=== PATIENT | female | born 1985 | race Caucasian/White ===

== ENCOUNTER 2017-09-26 23:57 | Emergency (ER) | payer OTHER, MEDICAID ==
[~2017-09-26] VITALS: Ht 152.4 cm; Wt 90.7 kg
[~2017-09-26 23:57] MED LIST: ACYCLOVIR 400400 MG PO; HYDROCODONE-APA1 TA1 PO; IBUPROFEN 800800 M1 PO; KEFLEX500 MG PO; MEDROLDOSEPACK PO; NOHOMEMEDICATIONS; NORCO 5-325 TA1 EAC1 PO; NORCO 5-325 TA1 EACH PO; PHENERGAN 25 MG25 M1 PO; PREDNISONE 10 M10 MG PO; ROBAXIN 750 MG750 M1 PO; TRIAMCINOLONE 080 G3 TOP; TRINATE TABLET1 TAB; TYLENOL325 MG PO; VENTOLIN HFA 1818 GM INH; XANAX 0.5 MG0.5 M1 PO; ZPAK PO
[2017-09-27] MEDS ORDERED: NEURONTIN 300300 M1 (00:12)
[2017-09-27 00:55] LABS: HEMATOCRIT 43.2 % (37.0-47.0); HEMOGLOBIN 14.8 gm/dL (12.0-15.0); MCH 31.5 pg (26.0-34.0); MCHC 34.2 g/dL (28.0-37.0); MCV 91.9 fL (80.0-100.0); MPV 9.2 fl. (7.2-11.1); RBC 4.7 mil/uL (4.20-5.00); RDW-CV 13.1 % (10.5-14.5); WBC 9.5 thou/uL (4.0-11.0)
[2017-09-27 00:58] LABS: CALCIUM 8.7 mg/dL (8.5-10.1); CREATININE 0.9 mg/dL (0.6-1.3); POTASSIUM 3.3 mmol/L (3.5-5.1)
[2017-09-27 01:02] LABS: ALBUMIN 3.9 g/dL (3.4-5.0); TOTAL BILIRUBIN 0.6 mg/dL (<0.1-1.0); TOTAL PROTEIN 7.3 g/dL (6.4-8.2)
[2017-09-27] MEDS ORDERED: NORCO 5-325 TA1 EACH PO (02:33)
[2017-09-27 03:02] VITALS: BP 116/75
== END 2017-09-27 02:45 | disposition home or self-care (01) ==
LOC: M.ERS 23:57
PROVIDERS: Emergency Medicine Emergency Medical Services
DX: M54.9 Dorsalgia, unspecified (principal); F41.9 Anxiety disorder, unspecified; F32.9 Major depressive disorder, single episode, unspecified; G89.29 Other chronic pain; M79.7 Fibromyalgia; F17.210 Nicotine dependence, cigarettes, uncomplicated; Z98.890 Other specified postprocedural states

== ENCOUNTER 2017-11-15 21:58 | Emergency (ER) | payer OTHER ==
[~2017-11-15] VITALS: Ht 152.4 cm; Wt 90.7 kg
[~2017-11-15 21:58] MED LIST changes: +NEURONTIN 300300 M1
[2017-11-15 22:27] LABS: ABSOLUTE BASOPHILS 0.1 thou/uL (0.0-0.2); ABSOLUTE EOSINOPHILS 0.2 thou/uL (0.0-0.7); ABSOLUTE LYMPHOCYTES 2.2 thou/uL (0.8-5.3); ABSOLUTE MONOCYTES 0.5 thou/uL (0.0-1.2); ABSOLUTE NEUTROPHILS 6.3 thou/uL (1.6-8.1); BASOPHILS 0.6 %; EOSINOPHILS 2.5 %; HEMATOCRIT 46.4 % (37.0-47.0); HEMOGLOBIN 15.8 gm/dL (12.0-15.0); LYMPHOCYTES 23.5 %; MCH 31.4 pg (26.0-34.0); MCV 92.4 fL (80.0-100.0); MONOCYTES 5.3 %; MPV 9.2 fl. (7.2-11.1); NUCLEATED RBCS 0 /100WBC; PLATELET COUNT* 220 thou/uL (150-400); POLYS 68.1 %; RBC 5.02 mil/uL (4.20-5.00); RDW-CV 13.3 % (10.5-14.5); WBC 9.3 thou/uL (4.0-11.0)
[2017-11-15 22:28] LABS: URINE BLOOD NEGATIVE (Negative); URINE CLARITY CLEAR; URINE COLOR YELLOW; URINE GLUCOSE-RANDOM NEGATIVE (Negative); URINE KETONES NEGATIVE (Negative); URINE LEUKOCYTES-REFLEX NEGATIVE (Negative); URINE NITRITE-REFLEX NEGATIVE (Negative); URINE PROTEIN TRACE (Negative); URINE SPECIFIC GRAVITY 1.025 (1.005-1.030)
[2017-11-15 22:30] LABS: ICTOTEST (BILI CONFIRMATORY) Negative (Negative); URINE BILIRUBIN 1+ (Negative)
[2017-11-15 22:37] LABS: AMP/METHAMP Negative (Negative); BARBITURATES Negative (Negative); BENZODIAZEPINES Negative (Negative); COCAINE POSITIVE (Negative); METHADONE Negative (Negative); OPIATES Negative (Negative); PCP Negative (Negative); THC POSITIVE (Negative)
[2017-11-15 22:40] LABS: CALCIUM 9.2 mg/dL (8.5-10.1); CREATININE 0.8 mg/dL (0.6-1.3); POTASSIUM 3.7 mmol/L (3.5-5.1)
[2017-11-15 22:44] LABS: ALBUMIN 3.7 g/dL (3.4-5.0); TOTAL BILIRUBIN 0.5 mg/dL (<0.1-1.0); TOTAL PROTEIN 7.3 g/dL (6.4-8.2)
[2017-11-15] MEDS ORDERED: ZOFRAN ODT4 MG PO (23:01)
[2017-11-15] MEDS ORDERED: ANTIVERT25 MG PO (23:01)
[2017-11-15 23:24] VITALS: BP 132/78
--- NOTE | 2017-11-16 10:40 | EKG ---
[place] [address] ELECTROCARDIOGRAM REPORT Name: GARCIA LANIER Room: [facility]#: [id number] Admission: 11/15/17 Attend Phys: Discharge: 11/15/17 Date of : 81 Report #: [id number] THIS REPORT FOR: //name// [facility] ED Test Date: 2017-11-15 Test Time: 22:30:04 Pat Name: GARCIA LANIER Department: Room: Gender: F Cotton Chopper: SHANICE : 1985 Requested By: Rubina Kilgore Order Number: [id number] MD: Julián Byrd Measurements Intervals [place] Rate: 74 P: 48 HI: 161 QRS: 28 QRSD: 100 T: 36 QT: 393 QTc: 436 Interpretive Statements Sinus rhythm Compared to ECG 02/24/2014 14:04:18 Sinus bradycardia no longer present Electronically Signed On 11-16-2017 10:39:57 CDT by Julián Byrd [email or web address] <ELECTRONICALLY SIGNED> By: Julián Byrd MD, [facility] 11/16/17 1039 [id number] 29 Julián Byrd MD, FACC /EPI
== END 2017-11-15 23:25 | disposition home or self-care (01) ==
LOC: M.ERS 21:58
PROVIDERS: Nurse Practitioner Family
DX: R11.2 Nausea with vomiting, unspecified (principal); R42 Dizziness and giddiness; F41.9 Anxiety disorder, unspecified; F32.9 Major depressive disorder, single episode, unspecified; M79.7 Fibromyalgia; G89.29 Other chronic pain; M54.9 Dorsalgia, unspecified; F17.210 Nicotine dependence, cigarettes, uncomplicated

== ENCOUNTER 2018-01-25 23:02 | Emergency (ER) | payer BC ==
[~2018-01-25] VITALS: Ht 152.4 cm; Wt 99.8 kg
[~2018-01-25 23:02] MED LIST changes: +ANTIVERT25 MG PO; +ZOFRAN ODT4 MG PO
[2018-01-25] MEDS ORDERED: PREDNISONE 20 M20 M1 PO (23:18)
[2018-01-25] MEDS ORDERED: VENTOLIN HFA 1818 GM INH (23:18)
[2018-01-25] MEDS ORDERED: ZPAK PO (23:18)
[2018-01-26] VITALS: BP 135/90
== END 2018-01-26 | disposition home or self-care (01) ==
LOC: M.ERS 23:02
DX: J40 Bronchitis, not specified as acute or chronic (principal); F17.210 Nicotine dependence, cigarettes, uncomplicated; F41.1 Generalized anxiety disorder; F32.9 Major depressive disorder, single episode, unspecified; G89.29 Other chronic pain; M54.9 Dorsalgia, unspecified; M79.7 Fibromyalgia; F40.00 Agoraphobia, unspecified; Z98.890 Other specified postprocedural states

== ENCOUNTER 2018-10-01 14:44 | Emergency (ER) | payer BC ==
[~2018-10-01] VITALS: Ht 154.9 cm; Wt 85.3 kg
[~2018-10-01 14:44] MED LIST changes: +PREDNISONE 20 M20 M1 PO
[2018-10-01 15:27] LABS: ABSOLUTE EOSINOPHILS 0.5 thou/uL (0.0-0.7); ABSOLUTE LYMPHOCYTES 1.3 thou/uL (0.8-5.3); ABSOLUTE MONOCYTES 0.4 thou/uL (0.0-1.2); ABSOLUTE NEUTROPHILS 2.5 thou/uL (1.6-8.1); BASOPHILS 0.8 %; EOSINOPHILS 9.9 %; HEMATOCRIT 40.8 % (37.0-47.0); HEMOGLOBIN 13.8 gm/dL (12.0-15.0); LYMPHOCYTES 27.3 %; MCH 30.7 pg (26.0-34.0); MCHC 33.8 g/dL (28.0-37.0); MCV 90.7 fL (80.0-100.0); MONOCYTES 8.3 %; MPV 9.3 fl. (7.2-11.1); NUCLEATED RBCS 0 /100WBC; PLATELET COUNT* 134 thou/uL (150-400); POLYS 53.7 %; RDW-CV 14.3 % (10.5-14.5); WBC 4.7 thou/uL (4.0-11.0)
[2018-10-01 15:34] LABS: CALCIUM 8.1 mg/dL (8.5-10.1); CREATININE 0.7 mg/dL (0.6-1.3); POTASSIUM 3.8 mmol/L (3.5-5.1)
[2018-10-01 15:39] LABS: ALBUMIN 3.3 g/dL (3.4-5.0); TOTAL BILIRUBIN 0.2 mg/dL (<0.1-1.0); TOTAL PROTEIN 6.5 g/dL (6.4-8.2)
[2018-10-01] MEDS ORDERED: PREDNISONE 10 M10 MG PO (16:46)
[2018-10-01] MEDS ORDERED: TRIAMCINOLONE A80 G2 TOP (16:55)
[2018-10-01] MEDS ORDERED: HYDROXYZINE HCL25 M1 PO (16:55)
[2018-10-01 17:17] VITALS: BP 120/78
== END 2018-10-01 17:18 | disposition home or self-care (01) ==
LOC: M.ERS 14:44
PROVIDERS: Physician Assistant
DX: L25.9 Unspecified contact dermatitis, unspecified cause (principal); F17.210 Nicotine dependence, cigarettes, uncomplicated; F41.9 Anxiety disorder, unspecified; F32.9 Major depressive disorder, single episode, unspecified; M54.9 Dorsalgia, unspecified; G89.29 Other chronic pain; M79.7 Fibromyalgia; Z98.890 Other specified postprocedural states

== ENCOUNTER 2018-11-19 17:44 | Emergency (ER) | payer BC ==
[~2018-11-19] VITALS: Ht 154.9 cm; Wt 73.0 kg
[~2018-11-19 17:44] MED LIST changes: +HYDROXYZINE HCL25 M1 PO; +TRIAMCINOLONE A80 G2 TOP
[2018-11-19 18:14] LABS: ABSOLUTE BASOPHILS 0.1 thou/uL (0.0-0.2); ABSOLUTE EOSINOPHILS 0.3 thou/uL (0.0-0.7); ABSOLUTE LYMPHOCYTES 2.3 thou/uL (0.8-5.3); ABSOLUTE MONOCYTES 0.4 thou/uL (0.0-1.2); ABSOLUTE NEUTROPHILS 3.5 thou/uL (1.6-8.1); BASOPHILS 1.3 %; EOSINOPHILS 4.5 %; HEMATOCRIT 41.5 % (37.0-47.0); HEMOGLOBIN 14.2 gm/dL (12.0-15.0); LYMPHOCYTES 35.1 %; MCH 30.9 pg (26.0-34.0); MCHC 34.2 g/dL (28.0-37.0); MCV 90.4 fL (80.0-100.0); MONOCYTES 5.6 %; MPV 9.7 fl. (7.2-11.1); NUCLEATED RBCS 0 /100WBC; PLATELET COUNT* 135 thou/uL (150-400); POLYS 53.5 %; RBC 4.59 mil/uL (4.20-5.00); RDW-CV 13.2 % (10.5-14.5); WBC 6.5 thou/uL (4.0-11.0)
[2018-11-19 18:19] LABS: URINE BILIRUBIN NEGATIVE (Negative); URINE BLOOD NEGATIVE (Negative); URINE CLARITY CLEAR; URINE COLOR YELLOW; URINE GLUCOSE-RANDOM NEGATIVE (Negative); URINE KETONES NEGATIVE (Negative); URINE LEUKOCYTES-REFLEX NEGATIVE (Negative); URINE NITRITE-REFLEX NEGATIVE (Negative); URINE PROTEIN TRACE (Negative); URINE SPECIFIC GRAVITY 1.015 (1.005-1.030); URINE UROBILINOGEN 0.2 E.U./dl (0.2-1.0)
[2018-11-19 18:22] LABS: CALCIUM 8.3 mg/dL (8.5-10.1); CREATININE 0.8 mg/dL (0.6-1.3); POTASSIUM 3.7 mmol/L (3.5-5.1)
[2018-11-19 18:27] LABS: ALBUMIN 3.8 g/dL (3.4-5.0); TOTAL BILIRUBIN 0.4 mg/dL (<0.1-1.0); TOTAL PROTEIN 6.8 g/dL (6.4-8.2)
[2018-11-19] MEDS ORDERED: TRANSDERM-SCOP1 EACH TRANSDERM (18:32)
[2018-11-19] MEDS ORDERED: ONDANSETRON HCL4 M2 PO (18:32)
[2018-11-19 19:14] VITALS: BP 132/70
[2018-11-19 19:22] LABS: ESR (SEDRATE) 2 mm/hr (0-20)
== END 2018-11-19 19:15 | disposition home or self-care (01) ==
LOC: M.ERS 17:44
PROVIDERS: Physician Assistant
DX: R42 Dizziness and giddiness (principal); R11.2 Nausea with vomiting, unspecified; F41.9 Anxiety disorder, unspecified; M54.9 Dorsalgia, unspecified; G89.29 Other chronic pain; M79.7 Fibromyalgia; F17.210 Nicotine dependence, cigarettes, uncomplicated

== ENCOUNTER 2018-12-10 10:14 | Emergency (ER) | payer BC ==
[~2018-12-10] VITALS: Ht 154.9 cm; Wt 71.2 kg
[~2018-12-10 10:14] MED LIST changes: +ONDANSETRON HCL4 M2 PO; +TRANSDERM-SCOP1 EACH TRANSDERM
[2018-12-10 10:53] VITALS: BP 131/91
== END 2018-12-10 10:54 | disposition home or self-care (01) ==
LOC: M.ERS 10:14
DX: R03.0 Elevated blood-pressure reading, without diagnosis of hypertension (principal); Z02.89 Encounter for other administrative examinations; F41.9 Anxiety disorder, unspecified; F32.9 Major depressive disorder, single episode, unspecified; M79.7 Fibromyalgia; G89.29 Other chronic pain; M54.9 Dorsalgia, unspecified; F17.210 Nicotine dependence, cigarettes, uncomplicated; Z98.890 Other specified postprocedural states

== ENCOUNTER 2019-01-11 10:55 | Emergency (ER) | payer BC ==
[~2019-01-11] VITALS: Ht 152.4 cm; Wt 69.8 kg
[2019-01-11 11:36] LABS: URINE BLOOD 3+ (Negative); URINE CLARITY CLEAR; URINE COLOR YELLOW; URINE GLUCOSE-RANDOM NEGATIVE (Negative); URINE KETONES NEGATIVE (Negative); URINE LEUKOCYTES-REFLEX TRACE (Negative); URINE NITRITE-REFLEX NEGATIVE (Negative); URINE PROTEIN TRACE (Negative); URINE SPECIFIC GRAVITY 1.025 (1.005-1.030); URINE UROBILINOGEN 0.2 E.U./dl (0.2-1.0)
[2019-01-11 11:39] LABS: ICTOTEST (BILI CONFIRMATORY) Negative (Negative); URINE BILIRUBIN 1+ (Negative)
[2019-01-11] MEDS ORDERED: ONDANSETRON HCL4 M2 PO (11:39)
[2019-01-11 11:48] VITALS: BP 137/83
[2019-01-11 11:48] LABS: CASTS None Seen /LPF (None Seen); CRYSTALS None Seen /LPF (None Seen); MUCUS >6 Heavy strn/LPF (None Seen); SQUAMOUS >10 Many /LPF (0-3); URINE WBC-REFLEX 0-5 Rare /HPF (0-5)
== END 2019-01-11 11:49 | disposition home or self-care (01) ==
LOC: M.ERS 10:55
PROVIDERS: Nurse Practitioner Family
DX: Z02.79 Encounter for issue of other medical certificate (principal); R51 Headache; K59.00 Constipation, unspecified; F17.210 Nicotine dependence, cigarettes, uncomplicated; F41.9 Anxiety disorder, unspecified; G89.29 Other chronic pain; F32.9 Major depressive disorder, single episode, unspecified

== ENCOUNTER 2021-01-24 22:30 | Observation (INO) | payer BC ==
[~2021-01-24] VITALS: Ht 152.4 cm; Wt 76.7 kg
[2021-01-24 22:41] VITALS: BP 140/65
[2021-01-24 22:59] LABS: ABSOLUTE BASOPHILS 0.1 thou/uL (0.0-0.2); ABSOLUTE EOSINOPHILS 0.8 thou/uL (0.0-0.7); ABSOLUTE LYMPHOCYTES 2.6 thou/uL (0.8-5.3); ABSOLUTE MONOCYTES 0.6 thou/uL (0.0-1.2); ABSOLUTE NEUTROPHILS 7.3 thou/uL (1.6-8.1); BASOPHILS 0.6 %; EOSINOPHILS 7.1 %; HEMOGLOBIN 14.4 gm/dL (12.0-15.0); LYMPHOCYTES 22.8 %; MCH 30.5 pg (26.0-34.0); MCHC 33.5 g/dL (28.0-37.0); MCV 91.1 fL (80.0-100.0); MPV 9.2 fl. (7.2-11.1); NUCLEATED RBCS 0 /100WBC; PLATELET COUNT* 170 thou/uL (150-400); POLYS 64.5 %; RBC 4.71 mil/uL (4.20-5.00); RDW-CV 12.6 % (10.5-14.5); WBC 11.4 thou/uL (4.0-11.0)
[2021-01-24 23:15] LABS: CALCIUM 8.2 mg/dL (8.5-10.1); CREATININE 0.8 mg/dL (0.6-1.3); POTASSIUM 4.7 mmol/L (3.5-5.1)
[2021-01-24 23:20] LABS: ALBUMIN 3.7 g/dL (3.4-5.0); TOTAL BILIRUBIN 0.5 mg/dL (<0.1-1.0); TOTAL PROTEIN 7.1 g/dL (6.4-8.2)
[2021-01-25 00:03] LABS: ICTOTEST (BILI CONFIRMATORY) Negative (Negative); URINE BILIRUBIN 2+ (Negative); URINE BLOOD NEGATIVE (Negative); URINE CLARITY CLEAR; URINE COLOR YELLOW; URINE GLUCOSE-RANDOM NEGATIVE (Negative); URINE KETONES NEGATIVE (Negative); URINE LEUKOCYTES-REFLEX NEGATIVE (Negative); URINE NITRITE-REFLEX NEGATIVE (Negative); URINE PROTEIN 1+ (Negative); URINE SPECIFIC GRAVITY >= 1.030 (1.005-1.030); URINE UROBILINOGEN 0.2 E.U./dl (0.2-1.0)
[2021-01-25 00:11] LABS: AMP/METHAMP Negative (Negative); BARBITURATES Negative (Negative); BENZODIAZEPINES Negative (Negative); COCAINE Negative (Negative); METHADONE Negative (Negative); OPIATES Negative (Negative); PCP Negative (Negative); THC Negative (Negative)
[2021-01-25 04:56] VITALS: BP 130/58
[2021-01-25 05:00] VITALS: BP 154/84
--- NOTE | 2021-01-25 05:39 | NUR ---
PT TO FLOOR APPROX 0500 FROM ED, PAIN MEDS ADMINISTERED JUST BEFORE SHE LEFT ED. PT AO X4 BUT DROWSY AND ENCOURAGED TO STAY AWAKE UNTIL INTAKE WAS COMPLETED. PT REPORTS PAIN 7/10 IN RLQ OF ABD X3 DAYS, DENIES DIARRHEA OR CONSTIPATION WITH LAST BM 2 DAYS AGO. IVF INFUSING WITHOUT ISSUE, PT OBS, M/S STATUS. VSS, PT HAVING SOME NAUSEA BUT RESTING COMFORTABLY.
[2021-01-25 08:00] VITALS: BP 145/83
[2021-01-25 12:11] VITALS: BP 117/67
--- NOTE | 2021-01-25 13:48 | NUR ---
CM ASSESSMENT: PT A&O, INDPEPENDENT WITH ADL'S, ACTIVE AND WORKS OUTSIDE THE HOME. PT USES 0 DME. NO CM D/C PLANNING NEEDS ANTICIPATED. CM WILL REMAIN AVAILABLE TO ASSIST AND FOLLOW NEEDED.
[2021-01-25 19:57] VITALS: BP 113/64
[2021-01-26] VITALS: BP 110/68
[2021-01-26 04:00] VITALS: BP 106/71
--- NOTE | 2021-01-26 04:45 | NUR ---
PAIN STILL AN ISSUE, RATING 7/10 POUNDING PRESSURE IN ABDOMINAL AREA. FLUIDS/ABX GIVEN ORDERED. RECEIVED ALL MEDS SCHEDULED. SHE IS ALERT AND ORIENTED, ROOM AIR, SLEPT WELL AFTER PAIN MEDICATION. NORCO/MORPHINE GIVEN WILL CONTINUE TO MONITOR
[2021-01-26 08:02] VITALS: BP 131/79
[2021-01-26 12:00] VITALS: BP 111/64
[2021-01-26] MEDS ORDERED: AUGMENTIN 875-1 EACH PO (12:15)
[2021-01-26] MEDS ORDERED: NORCO5 PO (12:15)
[2021-01-26 12:46] VITALS: BP 111/64
--- NOTE | 2021-01-26 15:47 | NUR ---
PT DISCHARGED HOME WITH ALL BELONGINGS ACCOMPANIED BY SIGNIFICANT OTHER. PT HAS GOOD UNDERSTANDING OF DISCHARGE INSTRUCTIONS. PT DENIED PAIN ON DISCHARGE. SALINE LOCK REMOVED HUB INTACT. PT DISCHARGED HOME.
--- NOTE | 2021-01-29 07:06 | OP ---
[facility] [address] [place] [address] OPERATIVE REPORT Name: GARCIA LANIER Room: [address] Rik Rashid#: [id number] Admission: 01/25/21 Attend Phys: Tom Young Discharge: 01/26/21 Date of : 81 Report #: [id number] THIS REPORT FOR: cc: KURTIS - No family physician/PCP FAM - No family physician/PCP Tom Young MD ~ DATE OF SURGERY: 01/25/2021 PREOPERATIVE DIAGNOSIS: Acute appendicitis. POSTOPERATIVE DIAGNOSIS: Acute perforated appendicitis. OPERATION: Laparoscopic appendectomy. SURGEON: Tom Young MD ANESTHESIA: General. ESTIMATED BLOOD LOSS: Minimal. SPECIMENS: Appendix. DESCRIPTION OF PROCEDURE: After informed consent was obtained, the patient was brought to the operating room and placed supine. SCDs were placed and working, preoperative antibiotics were administered, general anesthesia was induced. The abdomen was prepped and draped in the usual sterile fashion. A 10 mm incision was made below the umbilicus. Fascia was incised and a trocar was placed. Pneumoperitoneum was established. Left lower quadrant and right upper quadrant 5 mm trocars were placed under direct vision. The patient was placed tilted to the left slightly. The appendix was noted to be inflamed and edematous and had a perforation. There were fecaliths visible. The appendix was then grasped and mesoappendix was ligated using the LigaSure device. There was excellent hemostasis. Base of the appendix was ligated using the PDS Endoloop. The appendix was then ligated and removed through an Endopouch. The area was irrigated slightly. I then removed the trocars under direct vision. The fascia was closed with a nwybbh-jx-etprc 0 Vicryl. Skin was closed with 4-0 Monocryl. Incisions were dressed with Steri-Strips. COMPLICATIONS: None. DISPOSITION: The patient was taken to recovery in satisfactory condition. <ELECTRONICALLY SIGNED> By: Tom Young MD 01/29/21 0706 1008 1101Tom Young MD /nt
--- NOTE | 2021-01-29 17:06 | PATH ---
[address] [address] PATHOLOGY RPT PROCEDURE Name: GARCIA LANIER Room: [address] Rik Rashid#: [id number] Admission: 01/25/21 Date of : 81 Discharge: 01/26/21 Report #: [id number] Path Case #: [id number] [facility] Accession Number: [id number] . 01 Material submitted: . appendix - APPENDIX . 01 Clinical history: . LAPAROSCOPIC APPENDECTOMY APPENDICITIS . 02 Diagnosis: Appendix: - Acute appendicitis, periappendicitis and serositis. (MARY ELLEN/db; 01/29/2021) LBQ 01/29/2021 1506 Local . 02 Electronically signed: . Matty Pringle MD, Pathologist NPI- [id number] . 01 Gross description: . Fixative: Formalin Labeled: Appendix Appendix length: 7.6 cm Appendix diameter: Ranges from 1.0-2.0 cm Mesoappendix: 5.6 x 1.7 x 1.3 cm Proximal margin: Pinched closed Serosa: Gonzáles-red with extensive hemorrhage and gonzáles-white purulent exudate Cut surface: Displays a dilated lumen filled with gonzáles-white fecal material Luminal diameter: Ranges from 0.6-1.4 cm Perforation: No Lesions/abnormalities: Previously described A1 Proximal margin (inked black) and distal tip, bisected A2 Mid appendix ([facility]; 01/27/2021) [facility] 01/27/2021 0926 Local . 02 Pathologist provided ICD-10: K35.80, K65.8 . 02 CPT . 558747 Specimen Comment: A courtesy copy of this report has been sent to [phone] Specimen Comment: Report sent to Performed at: [address] [id number] MD Monico Morales MD Phone: [phone] [place] [address] PATHOLOGY RPT PROCEDURE Name: GARCIA LANIER Room: [address] Rik MTroy#: [id number] Admission: 01/25/21 Date of : 81 Discharge: 01/26/21 Report #: [id number] Path Case #: [id number] Performed at: [address] [facility] [address], [place], [place] [id number] MD Matty Pringle MD Phone: [phone]
== END 2021-01-26 16:20 | disposition home or self-care (01) ==
LOC: M.ERS 22:30 → M.TBA-ER 01-25 03:27 → M.2W 01-25 04:52
PROVIDERS: Emergency Medicine; ADMIT Surgery; ATTEND Surgery
DX: K35.80 Unspecified acute appendicitis (principal); Z20.822 Contact with and (suspected) exposure to COVID-19; F41.1 Generalized anxiety disorder; R11.2 Nausea with vomiting, unspecified; F32.9 Major depressive disorder, single episode, unspecified; G89.29 Other chronic pain; M79.7 Fibromyalgia; F17.210 Nicotine dependence, cigarettes, uncomplicated; Z91.040 Latex allergy status; Z79.899 Other long term (current) drug therapy